=== PATIENT | female | born 1970 | race Asian ===

== ENCOUNTER 2016-04-16 13:38 | Emergency (ER) | payer BC, OTHER ==
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
[2016-04-16 17:18] VITALS: BP 110/64
== END 2016-04-16 15:52 | disposition left against medical advice (07) ==
LOC: UCEAST 13:38
DX: R07.2 Precordial pain (principal); M25.512 Pain in left shoulder; M54.2 Cervicalgia
CPT/HCPCS: 99212; G0463

== ENCOUNTER 2016-04-27 10:13 | Emergency (ER) | payer BC, OTHER ==
[2016-04-27 10:32] VITALS: BP 109/69
[2016-04-27] MEDS ORDERED: Aspirin Low Dose CHEW TAB* 81 MG PO ONE (12:04)
[2016-04-27 12:24] LABS: Hematocrit 43 % (35-47); Hemoglobin 14.4 g/dl (12.0-16.0); Mean Corpuscular HGB Conc 33 g/dl (31-36); Mean Corpuscular Hemoglobin 31 pg (27-31); Mean Corpuscular Volume 94 fL (80-97); Mean Platelet Volume 9 um3 (7.4-10.4); Red Blood Count 4.61 10^6/ul (4.0-5.4); Red Cell Distribution Width 13 % (10.5-15); White Blood Count 7.8 10^3/ul (3.5-10.8)
[2016-04-27 12:37] LABS: Albumin 4.5 g/dL (3.2-5.2); BUN/Creatinine Ratio 14.3 (8-20); EGFR African American 114.9 (>60); EGFR Non-African American 89.3 (>60); Globulin 3.3 g/dL (2-4); Potassium 3.5 mmol/L (3.5-5.0); Total Bilirubin 0.8 mg/dL (0.2-1.0); Total Protein 7.8 g/dL (6.4-8.9); Troponin I 0.01 ng/mL (<0.04)
--- NOTE | 2016-04-27 13:09 | RAD ---
Indication: Chest pain. Single frontal view of the chest performed at 1230 hours was reviewed. Comparison is made with previous exam dated December 26, 2007. No mediastinal shift is noted. Heart is of normal size and configuration. Lung jenkins appear clear. Pleural diaphragmatic adhesions are noted in the right lung base which is unchanged from previous exam. IMPRESSION: NO ACTIVE CARDIOPULMONARY DISEASE IS NOTED.
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
[2016-04-27] MEDS ORDERED: Morphine INJ* 4 MG/ML 1 ML CARPUJECT IV ONE (14:43)
[2016-04-27] MEDS ORDERED: Ondansetron INJ* 2 MG/ML VIAL IV ONE (14:43)
[2016-04-27] MEDS ORDERED: NS 0.9% 1000 ML* 1,000 ML IV ONE (14:43)
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
== END 2016-04-27 14:49 | disposition home or self-care (01) ==
LOC: ED 10:13
DX: S13.4XXA Sprain of ligaments of cervical spine, initial encounter (principal); R07.89 Other chest pain; R51 Headache; M54.2 Cervicalgia; V49.9XXA Car occupant (driver) (passenger) injured in unspecified traffic accident, initial encounter; Y93.9 Activity, unspecified; Y92.9 Unspecified place or not applicable
CPT/HCPCS: 36415; 70450; 71010; 72125; 80053; 84484; 85025; 93005; 96374; 96375; 99282; A9270-GY

== ENCOUNTER 2016-04-30 16:26 | Emergency (ER) | payer BC ==
[2016-04-30 19:06] VITALS: BP 100/52
--- NOTE | 2016-04-30 20:41 | ED ---
Laceration/Wound HPI - HPI Summary HPI Summary: 46 F presents with left finger laceration today. She was cutting vegetables when she cut her finger. She denies any numbness or tingling. She believes that her tetanus is up to date. - History of Current Complaint Stated Complaint: LT INDEX FINGER LAC Time Seen by Provider: 04/30/16 19:10 Hx Last Menstrual Period: She does not know Pain Intensity: 8 - Allergy/Home Medications Allergies/Adverse Reactions: Allergies Allergy/AdvReac Type Severity Reaction Status Date / Time No Known Allergies Allergy Verified 04/30/16 16:45 PMH/Surg Hx/FS Hx/Imm Hx Endocrine/Hematology History: Denies: Hx Anticoagulant Therapy, Hx Diabetes, Hx Thyroid Disease Cardiovascular History: Denies: Hx Congestive Heart Failure, Hx Deep Vein Thrombosis, Hx Hypertension , Hx Myocardial Infarction, Hx Pacemaker/ICD Respiratory History: Denies: Hx Asthma, Hx Chronic Obstructive Pulmonary Disease (COPD), Hx Lung Cancer, Hx Pneumonia, Hx Pulmonary Embolism GI History: Denies: Hx Gall Bladder Disease, Hx Gastrointestinal Bleed, Hx Ulcer, Hx Urosepsis History: Denies: Hx Kidney Stones, Hx Renal Disease Neurological History: Denies: Hx Dementia, Hx Migraine, Hx Seizures, Hx Transient Ischemic Attacks (TIA) Psychiatric History: Denies: Hx Anxiety, Hx Depression, Hx Schizophrenia, Hx Bipolar Disorder Infectious Disease History: Denies: Hx Hepatitis, Hx Human Immunodeficiency Virus (HIV), Traveled Outside the [place] in Last 30 Days - Family History Known Family History: Positive: Cardiac Disease - father Negative: Hypertension - Social History Alcohol Use: None Substance Use Type: Reports: None Smoking Status (MU): Never Smoked Tobacco Review of Systems Negative: Fever Negative: Chest Pain Negative: Shortness Of Breath Positive: Other - laceration of left index finger All Other Systems Reviewed And Are Negative: Yes Physical Exam Triage Information Reviewed: Yes Vital Signs On Initial Exam: Initial Vitals Temp Pulse Resp BP Pulse Ox 98.2 F 70 16 101/54 99 04/30/16 16:40 04/30/16 16:40 04/30/16 16:40 04/30/16 16:40 04/30/16 16:40 Vital Signs Reviewed: Yes Appearance: Positive: Well-Appearing Skin: Positive: Warm, Dry, Other - 2 cm laceration that is superficially 1/8 cm deep and does not spread open located on distal phalanx of left index finger Eyes: Positive: Normal, Conjunctiva Clear Respiratory/Lung Sounds: Positive: Clear to Auscultation, Breath Sounds Present Cardiovascular: Positive: Normal, RRR Musculoskeletal: Positive: Strength/ROM Intact - of left index finger, Other - capillary refill <2 secs, good pulses Procedures - Laceration/Wound Repair 1 Location: Other - left index finger Description: Linear Length, Depth and Shape: 2 cm superficial by 1/8 deepth that does not seperate Betadine Prep?: No Irrigated w/ Saline (ccs): 100 Laceration/Wound Explored: clean Closure: Skin Adhesive, SteriStrips Number of Sutures: 0 Layer Closure?: No Sterile Dressing Applied?: No Diagnostics - Vital Signs Vital Signs Temp Pulse Resp BP Pulse Ox 04/30/16 19:05 98.4 F 65 18 100/52 100 04/30/16 17:50 98.2 F 73 18 98/61 100 04/30/16 17:30 98.7 F 76 20 107/62 100 04/30/16 16:40 98.2 F 70 16 101/54 99 - Laboratory Lab Statement: Any lab studies that have been ordered have been reviewed, and results considered in the medical decision making process. Laceration Repair Course/Dx - Course Course Of Treatment: 46 F presents with very superficial laceration of left index finger by a knife, believes tetanus is up to date, discussed could do sutures but it is so superficial that glue will work just as well, patient would like glue, clean area and placed glue and steristrips on top, placed in splint to avoid tension on area, explained signs of infection to return, patient agrees with plan - Differential Dx Differental Diagnoses: Abrasion, Avulsion, Laceration - Clinical Impression Provider Diagnoses: Laceration of left index finger Discharge - Discharge Plan Condition: Good Disposition: HOME Patient Education Materials: Skin Adhesive Care (ED) Referrals: Gurmeet Jones MD [Primary Care Provider] - Additional Instructions: Keep splint on area for 48 hours Take Tylenol for pain as needed every 6 hours Glue will fall off on own Avoid scrubbing area Use sunscreen on area after laceration has healed Return to ED if develop any signs of infection such as pus, spreading redness, or fever, or any new or worsening symptoms
== END 2016-04-30 21:31 | disposition home or self-care (01) ==
LOC: ED 16:26
DX: S61.211A Laceration without foreign body of left index finger without damage to nail, initial encounter (principal); W26.0XXA Contact with knife, initial encounter; Y93.9 Activity, unspecified; Y92.9 Unspecified place or not applicable
CPT/HCPCS: 99282

== ENCOUNTER 2017-08-09 22:18 | Emergency (ER) | payer OTHER ==
[2017-08-09 22:26] VITALS: BP 104/61
--- OUTSIDE RECORDS SUMMARY | 2017-08-09 22:34 | XMS REPORT ---
:1970 External Reference #:[id number] Author [facility] Address [address] [address] Phone [phone] Care Team Providers Name Role Phone Gurmeet Jones III, MD Primary Care Physician Unavailable Payers Type Date Identification Numbers Payment Provider Subscriber Commercial Effective: Policy Number: [id number] Jose Keenanmo 2017 Group Number: [id number] [address] PayID: [id number] [place] [address] Workers Compensation Onset: 2016 Policy Number: Tsailejung [place] Pelmo [id number] Ins PayID: [id number] [address] SHANTELL Connors [address] Problems Date Description Provider Status Onset: 12/24/2010 Pruritus of skin Gurmeet Jones M.D. Active Onset: 12/24/2010 Pure hypercholesterolemia Gurmeet Jones M.D. Active Onset: 09/09/2011 Backache Gurmeet Jones M.D. Active Onset: 09/09/2011 Chest pain Gurmeet Jones M.D. 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 Calcium + D3 Active Tablets 1000mg-Unit 60tabs 1 po qd Unknown 000 Vitamin B12 Active Tablets 100mcg 1 by Unknown 000 mouth every day Fish Oil Active Capsules 1000mg 1 by Unknown 000 mouth oncce a day Magnesium Active Tablets 250mg 1 by Unknown 000 mouth every day Immunizations CPT Code Status Date Vaccine Lot # [id number] Given 01/22/2010 Tdap - Tetanus/Diptheria/Acellular Pertussis [id number] Vital Signs Date Vital Result Comment 07/15/2017 Height 62.4 inches 5'2.40" Weight 137.00 lb Heart Rate 63 /min BP Systolic Sitting 100 mmHg BP Diastolic Sitting 50 mmHg O2 % BldC Oximetry 98 % BMI (Body Mass Index) 24.7 kg/m2 06/05/2017 Height 62 inches 5'2" Weight 132.00 lb BP Systolic 112 mmHg BP Diastolic 62 mmHg Respiratory Rate 18 /min Pain Level 0 BMI (Body Mass Index) 24.1 kg/m2 05/22/2017 Height 62 inches 5'2" Heart Rate 60 /min BP Systolic 106 mmHg BP Diastolic 62 mmHg Respiratory Rate 16 /min Body Temperature 97.4 F Pain Level 2 05/13/2017 Height 62 inches 5'2" Weight 132.00 lb Heart Rate 71 /min BP Systolic Sitting 118 mmHg BP Diastolic Sitting 64 mmHg Pain Level 5 BMI (Body Mass Index) 24.1 kg/m2 04/22/2017 Height 62 inches 5'2" Weight 132.00 lb Heart Rate 71 /min BP Systolic Sitting 110 mmHg BP Diastolic Sitting 66 mmHg Pain Level 3 BMI (Body Mass Index) 24.1 kg/m2 04/15/2017 Height 62 inches 5'2" Weight 135.00 lb per pt Heart Rate 64 /min reg Respiratory Rate 16 /min Pain Level 2 left shoulder and neck BMI (Body Mass Index) 24.7 kg/m2 02/06/2017 Height 62 inches 5'2" Weight 128.00 lb Heart Rate 72 /min Respiratory Rate 14 /min Body Temperature 97.3 F Pain Level 3 BMI (Body Mass Index) 23.4 kg/m2 11/28/2016 Height 62 inches 5'2" Weight 128.00 lb Heart Rate 66 /min BP Systolic 115 mmHg BP Diastolic 65 mmHg Body Temperature 97.0 F Pain Level 0 BMI (Body Mass Index) 23.4 kg/m2 08/30/2016 Height 62 inches 5'2" Weight 128.00 lb BP Systolic 102 mmHg BP Diastolic 67 mmHg Respiratory Rate 16 /min Body Temperature 97.4 F Pain Level 5 BMI (Body Mass Index) 23.4 kg/m2 08/02/2016 Height 62 inches 5'2" Weight 128.00 lb Heart Rate 71 /min Respiratory Rate 16 /min Body Temperature 97.0 F Pain Level 2 BMI (Body Mass Index) 23.4 kg/m2 07/23/2016 Height 62 inches 5'2" Weight 128.00 lb Heart Rate 67 /min BP Systolic 112 mmHg BP Diastolic 67 mmHg Body Temperature 96.5 F BMI (Body Mass Index) 23.4 kg/m2 05/08/2016 Height 62 inches 5'2" Weight 122.25 lb Heart Rate 72 /min BP Systolic 100 mmHg BP Diastolic 50 mmHg Body Temperature 96.3 F O2 % BldC Oximetry 96 % BMI (Body Mass Index) 22.4 kg/m2 04/18/2016 Weight 120.00 lb Heart Rate 66 /min BP Systolic Sitting 122 mmHg BP Diastolic Sitting 80 mmHg Respiratory Rate 15 /min Body Temperature 98.0 F O2 % BldC Oximetry 98 % 06/10/2014 Weight 130.25 lb Heart Rate 76 /min BP Systolic Sitting 107 mmHg BP Diastolic Sitting 66 mmHg 06/09/2014 Height 62.75 inches 5'2.75" Weight 130.25 lb Heart Rate 70 /min BP Systolic 102 mmHg BP Diastolic 60 mmHg Body Temperature 97.1 F O2 % BldC Oximetry 98 % BMI (Body Mass Index) 23.3 kg/m2 09/09/2011 Height 62.75 inches 5'2.75" Weight 129.00 lb Heart Rate 72 /min BP Systolic Sitting 92 mmHg BP Diastolic Sitting 70 mmHg BMI (Body Mass Index) 23.0 kg/m2 01/02/2011 Height 62.5 inches 5'2.50" Weight 126.75 lb Heart Rate 80 /min BP Systolic Sitting 98 mmHg BP Diastolic Sitting 56 mmHg BMI (Body Mass Index) 22.8 kg/m2 12/24/2010 Height 62.75 inches 5'2.75" Weight 127.25 lb Heart Rate 76 /min BP Systolic Sitting 98 mmHg BP Diastolic Sitting 68 mmHg BMI (Body Mass Index) 22.7 kg/m2 01/22/2010 Height 63.50 inches 5'3.50" Weight 126.00 lb Heart Rate 68 /min BP Systolic Sitting 102 mmHg BP Diastolic Sitting 60 mmHg BMI (Body Mass Index) 22.0 kg/m2 Results Test Date Test Result H/L Range Note Comp Metabolic Panel 04/27/2016 Sodium 140 mmol/L 133-145 Potassium 3.5 mmol/L 3.5-5.0 Chloride 104 mmol/L 101-111 Co2 Carbon Dioxide 30 mmol/L 22-32 Anion Gap 6 mmol/L 2-11 Glucose 73 mg/dL 70-100 Blood Urea Nitrogen 10 mg/dL 6-24 Creatinine 0.70 mg/dL 0.51-0.95 BUN/Creatinine Ratio 14.3 8-20 Calcium 10.0 mg/dL 8.6-10.3 Total Protein 7.8 g/dL 6.4-8.9 Albumin 4.5 g/dL 3.2-5.2 Globulin 3.3 g/dL 2-4 Albumin/Globulin Ratio 1.4 1-3 Total Bilirubin 0.80 mg/dL 0.2-1.0 Alkaline Phosphatase 62 U/L 34-104 Alt 15 U/L 7-52 Ast 22 U/L 13-39 Egfr Non- 89.3 >60 Egfr 114.9 >60 1 Laboratory test finding 04/27/2016 Troponin-I (TnI) 0.01 ng/mL <0.04 2 CBC Auto Diff 04/27/2016 White Blood Count 7.8 10^3/uL 3.5-10.8 Red Blood Count 4.61 10^6/uL 4.0-5.4 Hemoglobin 14.4 g/dL 12.0-16.0 Hematocrit 43 % 35-47 Mean Corpuscular Volume 94 fL 80-97 Mean Corpuscular Hemoglobin 31 pg 27-31 Mean Corpuscular HGB Conc 33 g/dL 31-36 Red Cell Distribution Width 13 % 10.5-15 Platelet Count 275 10^3/uL 150-450 Mean Platelet Volume 9 um3 7.4-10.4 Abs Neutrophils 4.1 10^3/uL 1.5-7.7 Abs Lymphocytes 2.7 10^3/uL 1.0-4.8 Abs Monocytes 0.6 10^3/uL 0-0.8 Abs Eosinophils 0.4 10^3/uL 0-0.6 Abs Basophils 0.1 10^3/uL 0-0.2 Abs Nucleated RBC 0.01 10^3/uL Granulocyte % 52.4 % 38-83 Lymphocyte % 34.1 % 25-47 Monocyte % 7.7 % 1-9 Eosinophil % 5.1 % 0-6 Basophil % 0.7 % 0-2 Nucleated Red Blood Cells % 0.2 Lipid Profile (Trig/Chol/HDL) 04/25/2016 Triglycerides 148 mg/dL 3 Cholesterol 234 mg/dL 4 HDL Cholesterol 66.1 mg/dL 5 LDL Cholesterol 138 mg/dL 6 Laboratory test finding 06/10/2014 Cytology RUN DATE: 06/13/ <SEE NOTE&gt ; 7 HPV Rna W/ Reflex Genotype Negative Negative 8 Comp Metabolic Panel 06/10/2014 Sodium 138 mmol/L 133-145 9 Potassium 3.9 mmol/L 3.5-5.0 9 Chloride 102 mmol/L 101-111 9 Co2 Carbon Dioxide 30 mmol/L 22-32 9 Anion Gap 6 mmol/L 2-11 9 Glucose 91 mg/dL 70-100 9 Blood Urea Nitrogen 11 mg/dL 6-24 9 Creatinine 0.78 mg/dL 0.51-0.95 9 BUN/Creatinine Ratio 14.1 8-20 9 Calcium 9.6 mg/dL 8.6-10.3 9 Total Protein 7.0 g/dL 6.4-8.9 9 Albumin 4.3 g/dL 3.2-5.2 9 Globulin 2.7 g/dL 2-4 9 Albumin/Globulin Ratio 1.6 1-3 9 Total Bilirubin 0.90 mg/dL 0.2-1.0 9 Alkaline Phosphatase 57 U/L 34-104 9 Alt 13 U/L 7-52 9 Ast 20 U/L 13-39 9 Egfr Non- 79.5 >60 9 Egfr 102.3 >60 9, 10 Lipid Profile (Trig/Chol/HDL) 06/10/2014 Triglycerides 101 mg/dL 9, 11 Cholesterol 209 mg/dL 9, 12 HDL Cholesterol 72.8 mg/dL 9, 13 LDL Cholesterol 116 mg/dL 9, 14 Laboratory test 06/10/2014 TSH (Thyroid 3.24 IU/mL 0.34-5.60 9, 15 finding Stimulating Horm) Laboratory test 06/09/2014 Gardnerella/Yeast: (SEE NOTE) 16 finding Vaginal Dna Laboratory test 01/02/2011 Genital For GRP B NGSUB 17 finding Strep Only Laboratory test 01/02/2011 Cytology 18 finding - <SEE NOTE> CBC With Manual Diff 12/24/2010 White Blood Count 7.0 CUMM 4.8-10.8 Red Cell Count 4.26 CUMM 4.2-5.4 Hemoglobin 13.8 g/dL 12.0-16.0 Hematocrit 41 % 35-47 Mean Corpuscular Volume 96 um3 79-97 Mean Corpuscular Hemoglob 32 pg High 27-31 Mean Corpuscular HGB Cone 34 g/dL 32-36 Redcell Distribution WDTH 14 % 10.5-15 Platelet Count 230 CUMM 150-450 Mean Platelet Volume 10.7 um3 High 7.4-10.4 Polysegmented Neutrophil 69 % 38-83 Lymphocyte 21 % Low 25-47 Monocyte 5 % 0-13 Eosinophil 3 % 0-6 Atypical Lymph 2 % 0-6 Absolute Neutrophil Count 4.8 Anisocytosis SLIGHT Poikilocytosis SLIGHT Comp Metabolic Panel 12/24/2010 Sodium 140 mmol/L 135-145 Potassium 4.0 mmol/L 3.5-5.0 Chloride 105 mmol/L 101-111 Co2 (Carbon Dioxide) 31.0 mmol/L 22-32 Anion Gap 4.0 mmol/L 2-11 19 Glucose 132 mg/dL High 70-100 BUN 8 mg/dL 6-24 Creatinine 0.7 mg/dL 0.50-1.40 One Over Creatinine 1.42 BUN/Creatinine Ratio 11.4 8-20 Calcium 9.6 mg/dL 8.1-9.9 Total Protein 7.0 GM/DL 6.2-8.1 Albumin 4.4 GM/DL 3.6-5.4 Globulin 2.6 GM/DL 2-4 Albumin/Globulin Ratio 1.7 1-3 Bilirubin Total 1.0 mg/dL 0.4-1.5 20 Alkaline Phosphatase 58 U/L 30-110 Alt (SGPT) 16 U/L 14-54 Ast (Sgot) 28 U/L 12-42 eGFR Non- 91.8 > 60 eGFR 118.0 > 60 21 Laboratory test finding 12/24/2010 TSH 1.31 MIU/ML 0.34-5.60 Lipid Profile (Trig/Chol/HDL) 01/23/2010 Triglyceride 59 mg/dL 40-200 Cholesterol 236 mg/dL High Less Than 200 22 High Density Lipoprotein 75 mg/dL High 40-60 23 Cholesterol/HDL Ratio 3.15 AVERAGE 1-4.44 Low Density Lipoprotein 149 mg/dL High Less Than 100 24 CBC With Electronic Diff 01/23/2010 White Blood Count 6.5 CUMM 4.8-10.8 Red Cell Count 4.01 CUMM Low 4.2-5.4 Hemoglobin 13.0 g/dL 12.0-16.0 Hematocrit 38 % 35-47 Mean Corpuscular Volume 94 um3 79-97 Mean Corpuscular Hemoglob 32 pg High 27-31 Mean Corpuscular HGB Cone 34 g/dL 32-36 Redcell Distribution WDTH 13 % 10.5-15 Platelet Count 242 CUMM 150-450 Mean Platelet Volume 9.1 um3 7.4-10.4 Gran % 56.5 % 38-83 Lymph % 30.3 % 25-47 Mononuclear % 7.0 % 1-9 Eosinophil % 5.7 % 0-6 Basophil % 0.5 % 0-2 Abs Lymphs 2.0 1.0-4.8 Abs Mononuclear 0.5 0-0.8 Absolute Neutrophil Count 3.6 1.5-7.7 Abs Eosinophils 0.4 0-0.6 Abs Basophils 0 0-0.2 Comp Metabolic Panel 01/23/2010 Sodium 141 mmol/L 135-145 Potassium 4.4 mmol/L 3.5-5.0 Chloride 108 mmol/L 101-111 Co2 (Carbon Dioxide) 29.0 mmol/L 22-32 Anion Gap 4.0 mmol/L 2-11 25 Glucose 95 mg/dL 70-100 26 BUN 9 mg/dL 6-24 Creatinine 0.80 mg/dL 0.50-1.40 One Over Creatinine 1.20 BUN/Creatinine Ratio 11.3 8-20 Calcium 9.2 mg/dL 8.1-9.9 Total Protein 6.6 GM/DL 6.2-8.1 Albumin 4.1 GM/DL 3.6-5.4 Globulin 2.5 GM/DL 2-4 Albumin/Globulin Ratio 1.6 1-3 Bilirubin Total 0.9 mg/dL 0.4-1.5 27 Alkaline Phosphatase 54 U/L 30-110 Alt (SGPT) 23 U/L 14-54 Ast (Sgot) 26 U/L 12-42 eGFR Non- 84.0 > 60 eGFR 101.7 > [address] Jones's Lab Panel 01/23/2010 TSH 1.44 MIU/ML 0.34-5.60 1 Because ethnic data is not always readily available, this report includes an eGFR for both -Americans and non- Americans. The National Kidney Disease Education Program (NKDEP) does not endorse the use of the MDRD equation for patients that are not between the ages of 18 and 70, are , have extremes of body size, muscle mass, or nutritional status, or are non- or non-. According to the National Kidney Foundation, irrespective of diagnosis, the stage of the disease is based on the level of kidney function: Stage Description GFR(mL/min/1.73 m(2)) 1 Kidney damage with normal or decreased GFR 90 2 Kidney damage with mild decrease in GFR 60-89 3 Moderate decrease in GFR 30-59 4 Severe decrease in GFR 15-29 5 Kidney failure <15 (or dialysis) 2 99th percentile=0.04 ng/mL Troponin results at [facility] and [facility] are not interchangeable. 3 Desirable <150 Borderline high 150-199 High 200-499 Very High >500 4 Desirable <200 Borderline high 200-239 High >239 5 Low <40 Desirable: 40-60 High: >60 6 Desirable: <100 mg/dL Near Optimal: 100-129 mg/dL Borderline High: 130-159 mg/dL High: 160-189 mg/dL Very High: >189 mg/dL 7 RUN DATE: 06/13/14 [facility] LAB LIVE PAGE 1 RUN TIME: [address] [place] [id number] Specimen Inquiry Name: SAEED PACK : [address]: Whit Doe NP Acct: [id number] Unit: [id number] AGE: 44 Location: [facility] Re06/10/14 SEX: F Status: REG REF SPEC: [id number] TOI: 06/10/14-[address]: Whit Doe NP REQ: [id number] RECD: 06/10/14-153 STATUS: SOUT _ ORDERED: IMAGE ANALYSIS, HPV/Thin Prep, HPV 16/18 GENE FINAL DIAGNOSIS Negative for Intraepithelial lesion or Malignancy A. Ectocervical/Endocervical Specimen Adequacy: Satisfactory of evaluation Transformation zone component identified Patient Information: HPV: High risk HPV RNA testing regardless of pap results. HPV 16/18 Genotype for HPV pos ?: N Post Menopausal?: Y Hysterectomy?: N Date Time Test Result Flag (u) Normal Range 06/10/14 1203 HPV RNA RFLX GE Negative Negative The high-risk HPV types detected by the assay include: 16, 18, 31, 33, 35, 39, 45, 51, 52, 56, 58, 59, 66, and 68. Signed (signature on file) WILLARD Montes De Oca (ASC) 06/13 1321 This Pap test was evaluated with the assistance of the Kangsheng ChuangxiangPrep Test Imaging System. Due to cytologic findings at the garbage collector driver microscope, comprehensive manual rescreening by a Superintendent Mechanical may be required. The Pap Smear is a screening test designed to aid in the detection of premalignant and malignant conditions of the uterine cervix. It is not a diagnostic procedure and should not be used as the sole means of detecting cervical cancer. Both false- positive and false- negative reports do occur. Depending on your risk status, a Pap smear should be obtained and evaluated every 1-3 years. END OF REPORT * ML=Testing performed at Main Lab DEPARTMENT OF PATHOLOGY, [address] [place] [place] [address] Eduardo Boss M.D. Director [facility] # [id number] 8 The high-risk HPV types detected by the assay include: 16, 18, 31, 33, 35, 39, 45, 51, 52, 56, 58, 59, 66, and 68. 9 PT IS FASTING 10 Because ethnic data is not always readily available, this report includes an eGFR for both -Americans and non- Americans. The National Kidney Disease Education Program (NKDEP) does not endorse the use of the MDRD equation for patients that are not between the ages of 18 and 70, are , have extremes of body size, muscle mass, or nutritional status, or are non- or non-. According to the National Kidney Foundation, irrespective of diagnosis, the stage of the disease is based on the level of kidney function: Stage Description GFR(mL/min/1.73 m(2)) 1 Kidney damage with normal or decreased GFR 90 2 Kidney damage with mild decrease in GFR 60-89 3 Moderate decrease in GFR 30-59 4 Severe decrease in GFR 15-29 5 Kidney failure <15 (or dialysis) 11 Desirable <150 Borderline high 150-199 High 200-499 Very High >500 12 Desirable <200 Borderline high 200-239 High >239 13 Low <40 Desirable: 40-60 High: >60 14 Desirable: <100 mg/dL Near Optimal: 100-129 mg/dL Borderline High: 130-159 mg/dL High: 160-189 mg/dL Very High: >189 mg/dL 15 PT IS FASTING 16 RUN DATE: 06/10/14 [facility] LAB LIVE PAGE 1 RUN TIME: [address] [place] [address] Specimen Inquiry Name: SAEED PACK : [address]: Jayme Gerard NP Acct: [id number] Unit: [id number] AGE: 44 Location: [facility] Re06/09/14 SEX: F Status: REG REF SPEC: [id number] TOI: 06/09/14-[address]: Jayme Gerard CREDIT CONTROL OFFICER REQ: [id number] RECD: 06/09/14-1307 STATUS: COMP _ SOURCE: VAGINAL SPDESC: ORDERED: Fidencio,Yeast DNA, Trich DNA QUERIES: Provider Requisition # [id number] Procedure Result Verified Site Gardnerella/Yeast: Vaginal DNA Final 06/10/14- 1015 L Organism 1 Negative Gardnerella Organism 2 Negative Lisette The presence of G. vaginalis, although suggestive, is not diagnostic for bacterial vaginosis. Results should be interpreted in conjuction with other clinical and laboratory data available. Women with vaginal discharge should be evaluated for risk factors of cervicitis and pelvic inflammatory disease, toxic shock syndrome (S.aureus), and if present, evaluated for organisms not included in this assay such as N. gonorrhoeae, C. trachomatis, Mobiluncus, Mycoplasma and/or Prevotella. Mixed infections may occur. The performance of this test on patient specimens collected during or immediately after antimicrobial therapy is unknown. The presence or absence of Lisette species, or G. vaginalis cannot be used as a test for therapeutic success or failure. Trichomonas: Vaginal DNA Probe Final 06/10/14- 1015 L Organism 1 Negative Trichomonas The presence or absence of T. vaginalis cannot be used as a test for therapeutic success or failure. END OF REPORT * ML=Testing performed at Main Lab DEPARTMENT OF PATHOLOGY, [address] [place] [address] Eduardo Boss M.D. Director [facility] # [id number] 17 CULTURE UNDER INCUBATION 18 ---- [facility]: 1543 Specimen Inquiry RUN USER: INTERFACE -- Name: SAEED PACK Status: REG REF Re01/02/11 Age/Sex: 40/F Unit#: [id number] Location: [facility]. : [birth year] -- Specimen: [id number] [id number] Spec Date: 01/02/[address]: Zenobia villeda MD Spec Type: CYTOLOGY Received: 01/03/11 Copies to: SOURCE ECTOCERVICAL/ENDOCERVICAL Thin Prep with Reflex HPV Test PATIENT INFORMATION ACTUAL COLLECTION DATE: 01/02/11 POST MENOPAUSAL? No PATIENT HISTORY: Last menstrual period not given. ADEQUACY OF SPECIMEN Satisfactory for evaluation * Transformation zone component identified * DIAGNOSIS NEGATIVE FOR INTRAEPITHELIAL LESION OR MALIGNANCY * This Pap test was evaluated with the assistance of the ThinPrep Pap Test Imaging System. The Pap Smear is a screening test designed to aid in the detection of premalign ant and malignant conditions of the uterine cervix. It is not a diagnostic procedure a nd should not be used as the sole means of detecting cervical cancer. Both false- positiv e and false-negative reports do occur. Depending on your risk status, a Pap smear stefan uld be obtained and evaluated every one to three years. Initial evaluation performed by Kash FERRARO(ASCP) 01/03/11 Final Interpretation electronically signed by: Kash FERRARO(ASCP) 01/03/11 154 2 -- -- DEPARTMENT OF PATHOLOGY, [address] [place] [address] [facility] Permit #[id number] Faiza Bee M.D. Plant Production Worker Dir mikki -- 19 Anion gap measurement may be of limited value in the presence of any alkalosis, especially in a combined acid base disorder. . 20 A metabolite of Naproxen, O-desmethylnaproxen, has been shown to interfere with the Jendrassik-Bartolo method for measuring total bilirubin. Samples from patients who have taken Naproxen have shown spurious elevation in total bilirubin levels. 21 Because ethnic data is not always readily available, this report includes an eGFR for both -Americans and non- Americans. The National Kidney Disease Education Program (NKDEP) does not endorse the use of the MDRD equation for patients that are not between the ages of 18 and 70, are , have extremes of body size, muscle mass, or nutritional status, or are non- or non-. According to the National Kidney Foundation, irrespective of diagnosis, the stage of the disease is based on the level of kidney function: Stage Description GFR(mL/min/1.73 m(2)) 1 Kidney damage with normal or decreased GFR 90 2 Kidney damage with mild decrease in GFR 60-89 3 Moderate decrease in GFR 30-59 4 Severe decrease in GFR 15-29 5 Kidney failure <15 (or dialysis) 22 CHOLESTEROL INTERPRETATION: Desirable: Less than 200 MG/DL Borderline-High Risk: 200-239 MG/DL High-Risk: 240 MG/DL and over 23 HDL INTERPRETATION: Undesirable: High Risk: Less than 40 MG/DL Desirable: Low Risk: Greater than 60 MG/DL 24 LDL INTERPRETATION: Low Risk Optimal Level: LDL Less than 100 MG/DL Near or Above Optimal: LDL 100-129 MG/DL Borderline High Risk: LDL 130-159 MG/DL High Risk: LDL 160-189 MG/DL Very High Risk: LDL Greater than 189 MG/DL 25 Anion gap measurement may be of limited value in the presence of any alkalosis, especially in a combined acid base disorder. . 26 Note change in reference range as of 11/19/07. The change was based on recommendations from the [place] [employer]. 27 A metabolite of Naproxen, O-desmethylnaproxen, has been shown to interfere with the Jendrassik-Bartolo method for measuring total bilirubin. Samples from patients who have taken Naproxen have shown spurious elevation in total bilirubin levels. 28 Because ethnic data is not always readily available, this report includes an eGFR for both -Americans and non- Americans. The National Kidney Disease Education Program (NKDEP) does not endorse the use of the MDRD equation for patients that are not between the ages of 18 and 70, are , have extremes of body size, muscle mass, or nutritional status, or are non- or non-. According to the National Kidney Foundation, irrespective of diagnosis, the stage of the disease is based on the level of kidney function: Stage Description GFR(mL/min/1.73 m(2)) 1 Kidney damage with normal or decreased GFR 90 2 Kidney damage with mild decrease in GFR 60-89 3 Moderate decrease in GFR 30-59 4 Severe decrease in GFR 15-29 5 Kidney failure <15 (or dialysis) Procedures Date CPT Code Description Status 07/11/2014 Mammogram Completed 09/09/2011 74694 EKG Tracing & Interpretation Completed 01/17/2011 Mammogram Completed Encounters Type Date Location Provider CPT E/M Dx Office Visit 06/05/2017 9:00a [facility] [place] [address] G56.02 C.M.A. G56.02 Office Visit 05/22/2017 1:45p [facility] [place] [address] G56.02 C.M.A. Office Visit 05/13/2017 3:00p [facility] [address]304 M50.123 Of Kevon Bullock MD M50.122 G56.02 Office Visit 04/22/2017 10:30a [facility] 06194 M50.123 Of Kevon Bullock MD M50.122 M54.2 Office Visit 04/15/2017 2:15p [facility] [place] [address] M54.2 C.M.A. S46.012D Office Visit 02/06/2017 9:15a [facility] [place] [address] S46.012D C.M.A. M54.2 Office Visit 11/28/2016 10:15a [facility] [place] [address] S46.012D C.M.A. M54.2 S46.012D Office Visit 08/30/2016 8:45a [facility] [place] [address] S46.012D C.M.A. M54.2 M54.2 Office Visit 08/02/2016 9:45a [facility] [place] [address] M54.2 C.M.A. S46.012D M54.2 Office Visit 07/23/2016 9:00a [facility] [place] [address] M54.2 C.M.A. M54.2 S46.012D S46.012A S46.012A Office Visit 05/08/2016 9:20a [facility] Internal Medicine Gurmeet Jones, 59473 Z00.00 - Sheba Kendall E78.00 M54.2 M54.5 Office Visit 04/18/2016 10:00a [facility] Internal Medicine Gurmeet Jones, 94854 M54.2 - Sheba Kendall Office Visit 06/09/2014 9:30a [facility] Internal Medicine Jayme Gerard, CREDIT CONTROL OFFICER [address] V70.0 - [address] V76.19 V77.91 V77.1 112.1 Office Visit 09/09/2011 10:00a [facility] Internal Medicine Gurmeet Jones, 337[address] 724.5 - Cailin Kendall 786.59 V72.60 Office Visit 01/02/2011 8:40a DO Not Use Cleaning Custodian At [facility] M.D. 83092 V76.19 Katerine V76.2 Office Visit 12/24/2010 11:00a DO Not Use Cleaning Custodian At Gurmeet Jones, 40397 698.9 Katerine Kendall 272.0 Office Visit 01/22/2010 11:00a DO Not Use Cleaning Custodian At Gurmeet Jones, 90596 784.0 Katerine Kendall V06.5 V04.81 Plan of Care Future Appointment(s):07/16/2018 11:00 am - Gurmeet Jones M.D. at [facility] Internal Medicine - Oyrs[place]qnie86/15/2018 11:15 am - Harry Boyd MD at [facility]08/11/2017 2:30 pm - David Bullock MD at [facility]07/15/2017 - Gurmeet Jones M.D.E78.00 Pure hypercholesterolemia, unspecifiedComments:Diet Rx only; recheck lipidsFollow up: yearly or prnM54.5 Low back painM54.2 OdbvtoyqeihY95.02 Carpal tunnel syndrome, left upper limb
[2017-08-09] MEDS ORDERED: DOXYcycline CAP(*) 100 MG PO ONE (22:50)
--- NOTE | 2017-08-09 22:52 | ED ---
Bite Injury/Animal - HPI Summary HPI Summary: 47-year-old female presents tick on the left thigh. She states she probably got it 2 days ago. She states it was hard to take the tick out and was engorged. She states that the head of the tick is still present. She states she has pain in the area of the tick. She is not allergic to doxycycline. She has no medical conditions. No fevers. No spreading redness. No joint aches. No rash. - History of Current Complaint Chief Complaint: EDExtremityLower Stated Complaint: BUG BITE Time Seen by Provider: 08/09/17 22:31 Hx Last Menstrual Period: She does not know Pain Intensity: 8 - Allergies/Home Medications Allergies/Adverse Reactions: Allergies Allergy/AdvReac Type Severity Reaction Status Date / Time No Known Allergies Allergy Verified 08/09/17 22:27 PMH/Surg Hx/FS Hx/Imm Hx Endocrine/Hematology History: Denies: Hx Anticoagulant Therapy, Hx Diabetes, Hx Thyroid Disease Cardiovascular History: Denies: Hx Congestive Heart Failure, Hx Deep Vein Thrombosis, Hx Hypertension , Hx Myocardial Infarction, Hx Pacemaker/ICD Respiratory History: Denies: Hx Asthma, Hx Chronic Obstructive Pulmonary Disease (COPD), Hx Lung Cancer, Hx Pneumonia, Hx Pulmonary Embolism GI History: Denies: Hx Gall Bladder Disease, Hx Gastrointestinal Bleed, Hx Ulcer, Hx Urosepsis History: Denies: Hx Kidney Stones, Hx Renal Disease Sensory History: Denies: Hx Hearing Aid Neurological History: Denies: Hx Dementia, Hx Migraine, Hx Seizures, Hx Transient Ischemic Attacks (TIA) Psychiatric History: Denies: Hx Anxiety, Hx Depression, Hx Panic Disorder, Hx Schizophrenia, Hx Bipolar Disorder - Immunization History Date of Tetanus Vaccine: utd Date of Influenza Vaccine: none Infectious Disease History: No Infectious Disease History: Denies: Hx Hepatitis, Hx Human Immunodeficiency Virus (HIV), Traveled Outside the [place] in Last 30 Days - Family History Known Family History: Positive: Cardiac Disease - father Negative: Hypertension - Social History Alcohol Use: None Substance Use Type: Reports: None Smoking Status (MU): Never Smoked Tobacco Review of Systems Negative: Fever Negative: Chest Pain Negative: Shortness Of Breath Positive: Other - tick bite left thigh All Other Systems Reviewed And Are Negative: Yes Physical Exam Triage Information Reviewed: Yes Vital Signs On Initial Exam: Initial Vitals Temp Pulse Resp BP Pulse Ox 98.3 F 68 16 104/61 99 08/09/17 22:20 08/09/17 22:20 08/09/17 22:20 08/09/17 22:20 08/09/17 22:20 Vital Signs Reviewed: Yes Appearance: Positive: Well-Appearing Skin: Positive: Warm, Dry, Other - tick head present left thigh Head/Face: Positive: Normal Head/Face Inspection Eyes: Positive: Normal, Conjunctiva Clear ENT: Positive: Pharynx normal Respiratory/Lung Sounds: Positive: Clear to Auscultation, Breath Sounds Present Cardiovascular: Positive: Normal, RRR Musculoskeletal: Positive: Normal Neurological: Positive: Normal Psychiatric: Positive: Normal Diagnostics - Vital Signs Vital Signs Temp Pulse Resp BP Pulse Ox 08/09/17 22:20 98.3 F 68 16 104/61 99 - Laboratory Lab Statement: Any lab studies that have been ordered have been reviewed, and results considered in the medical decision making process. Bite Injury Course/Dx - Course Course Of Treatment: 47-year-old female presents tick on the left thigh. She states she probably got it 2 days ago. She states it was hard to take the tick out and was engorged. She states that the head of the tick is still present. She states she has pain in the area of the tick. She is not allergic to doxycycline. She has no medical conditions. No fevers. No spreading redness. No joint aches. No rash. On exam has been tick bite with head on left thigh. removed tick head with needle. We'll give her ppx dose of doxycycline. Told to if develop bull eye rash to return to ED. Patient understands agrees with plan. - Diagnoses Differential Diagnosis/HQI/PQRI: Positive: Puncture, Other - tick, lyme Provider Diagnosis: Tick bite Discharge - Sign-Out/Discharge Documenting (check all that apply): Discharge/Admit/Transfer - Discharge Plan Condition: Good Disposition: HOME Patient Education Materials: Tick Bite (ED) Referrals: Gurmeet Jones MD [Primary Care Provider] - Additional Instructions: You have been prophylactically treated for Lyme disease keep area clean Return to ED if develop any rash or signs of infection - Billing Disposition and Condition Condition: GOOD Disposition: HOME
== END 2017-08-09 23:01 | disposition home or self-care (01) ==
LOC: ED 22:18
DX: S70.362A Insect bite (nonvenomous), left thigh, initial encounter (principal); W57.XXXA Bitten or stung by nonvenomous insect and other nonvenomous arthropods, initial encounter; Y92.9 Unspecified place or not applicable
CPT/HCPCS: 99282; A9270-GY